=== PATIENT | male | born 1980 | race Caucasian/White ===

== ENCOUNTER 2016-11-15 08:25 | Emergency (ER) | payer OTHER, SELFPAY ==
[2016-11-15] MEDS ORDERED: Ondansetron HCl/PF 4 MG/2 ML Vial ONE ×2 (08:56→09:55)
[2016-11-15] MEDS ORDERED: Famotidine/PF 20 mg/2ml Vial ONE ×2 (08:56)
[2016-11-15] MEDS ORDERED: Fentanyl 100 MCG/2 ML VIAL ONE ×2 (08:58→09:54)
[2016-11-15 09:23] LABS: #Basophils 0.1 thou/uL (0.0-0.2); #Eosinphils 0.1 thou/uL (0.0-0.7); #Lymphocytes 1.7 thou/uL (1.20-3.40); #Monocytes 0.6 thou/uL (0.11-0.59); #Neutrophils 5.2 thou/uL (1.40-6.50); %Basophils 0.7 % (0.0-1.0); %Eosinophils 1.6 % (0.0-10.0); %Lymphocytes 22.6 % (21.0-51.0); %Monocytes 7.1 % (0.0-10.0); Hematocrit 39.5 % (42.0-52.0); Mean Platelet Volume 7.9 fL (7.4-10.4); Red Blood Cell (RBC) Count 4.35 mill/uL (4.70-6.10); White Blood Cell (WBC) Count 7.7 thou/uL (4.8-10.8)
[2016-11-15 09:38] LABS: ALT (SGPT) 6 U/L (8-55); AST (SGOT) 11 U/L (5-34); Alkaline Phosphatase 77 U/L (40-150); Anion Gap 13 mmol/L (10-20); BUN (Urea Nitrogen) 15 mg/dL (8.9-20.6); Bilirubin, Total 0.2 mg/dL (0.2-1.2); Calc. Creatinine Clearance 0 mL/min (70-130); Calcium 8.6 mg/dL (7.8-10.44); Carbon Dioxide 27 mmol/L (22-29); Chloride 104 mmol/L (98-107); Estimated GFR-MDRD Greater than 90; Globulin 2.9 g/dL (2.4-3.5); Lipase 22 U/L (8-78); Protein, Total 6.5 g/dL (6.0-8.3)
[2016-11-15] MEDS ORDERED: Promethazine HCl 25 MG/ML VIAL ONE (10:58)
[2016-11-15 11:17] LABS: Bilirubin Negative (Negative); Blood, Urine Negative (Negative); Glucose, Urine (Dipstick) Negative (Negative); Ketone, Urine Negative (Negative); Nitrite Negative (Negative); Protein, Urine (Dipstick) Negative (Neg-Trace); Urobilinogen 0.2 mg/dL (0.2-1.0)
[2016-11-15 11:41] LABS: Amphetamine Not Detected (NotDetected); Methadone Not Detected (NotDetected); Methamphetamine Not Detected (NotDetected)
[2016-11-15] MEDS ORDERED: Ketorolac Tromethamine 30 MG/ML VIAL ONE (12:31)
--- NOTE | 2016-11-15 14:00 | CT ---
CT OF ABDOMEN AND PELVIS PERFORMED WITH INTRAVENOUS CONTRAST ENHANCEMENT: HISTORY: Abdominal pain, nausea, and vomiting. Diarrhea. Diffuse abdominal tenderness. The patient reports a history of Crohn's disease. COMPARISON: study. FINDINGS: The lung bases are clear. The liver, spleen, pancreas, and gallbladder regions appear unremarkable. Suggestion there is some minimal periportal edema change present. No focal masses. Right and left adrenal glands and right and left kidneys are normal. There is no significant periao rtic or mesenteric adenopathy. There is diffuse abnormal appearance to the colon. On the left side in the descending colon, these changes appear more chronic in nature as do the changes of the transverse colon with loss of the nor mal haustral pattern. Changes of the right colon are more pronounced with more pronounced colon wal l thickening and pericolonic inflammatory change. I do not see any significant dilatation to the sm all bowel associated with this. Appendix is once again prominent but similar in appearance to what it was on the prior exam. Some minimal fluid adjacent to the cecum. CT OF PELVIS PERFORMED WITH CONTRAST ENHANCEMENT: Trace free fluid is noted. No adenopathy or mass. IMPRESSION: Changes that would be compatible with Crohn's colitis. I believe that the changes of the left and t ransverse colon are probably chronic in nature. There is probably a more acute inflammatory change involving the right colon. Specifically, in the area of the cecum. There is some pericolonic infla mmatory change and some trace free fluid. No pneumatosis identified. No obstruction. POS: [facility]
== END 2016-11-15 13:50 | disposition home or self-care (01) ==
LOC: SCSER 08:25
DX: K50.90 Crohn's disease, unspecified, without complications (principal); F17.210 Nicotine dependence, cigarettes, uncomplicated
CPT/HCPCS: 74177; 80053; 80306; 81003; 83690; 85025; 86140; 96361; 96374; 96375; 96376; J1885; J2405; J2550; J3010; S0028

== ENCOUNTER 2021-03-17 20:20 | Emergency (ER) | payer BC ==
[~2021-03-17 20:20] MED LIST: Iopamidol 370 76% 100 ML VIAL ONE
[2021-03-17] MEDS ORDERED: Ondansetron PF 4 MG/2 ML Vial ONE (20:39)
[2021-03-17] MEDS ORDERED: Fentanyl 100 MCG/2 ML VIAL ONE (20:39)
[2021-03-17 21:28] LABS: #Monocytes 1.1 thou/uL (0.11-0.59); #Neutrophils 10.2 thou/uL (1.40-6.50); %Basophils 0.3 % (0.0-1.0); %Eosinophils 0.4 % (0.0-10.0); %Lymphocytes 8.2 % (21.0-51.0); %Monocytes 8.5 % (0.0-10.0); %Neutrophils 82.6 % (42.0-75.0); Hemoglobin 12.7 g/dL (14.0-18.0); Mean Corpuscular HGB CONC 33.1 g/dL (32.0-36.0); Mean Corpuscular Hemoglobin 32.2 pg (27.0-31.0); Mean Corpuscular Volume 97.2 fL (78.0-98.0); Mean Platelet Volume 8.4 fL (7.4-10.4); Platelet Count 204 thou/uL (130-400); RBC Distribution Width 13.3 % (11.5-14.5); Red Blood Cell (RBC) Count 3.94 mill/uL (4.70-6.10); White Blood Cell (WBC) Count 12.3 thou/uL (4.8-10.8)
[2021-03-17 21:58] LABS: ALT (SGPT) 8 U/L (8-55); AST (SGOT) 13 U/L (5-34); Albumin 3.3 g/dL (3.5-5.0); Alkaline Phosphatase 61 U/L (40-110); Anion Gap 12 mmol/L (10-20); BUN (Urea Nitrogen) 9 mg/dL (8.9-20.6); Bilirubin, Total 1.3 mg/dL (0.2-1.2); Calc. Creatinine Clearance 0 mL/min (70-130); Carbon Dioxide 23 mmol/L (22-29); Chloride 99 mmol/L (98-107); Globulin 2.5 g/dL (2.4-3.5); Glucose 105 mg/dL (70-105); Lipase 5 U/L (8-78); Potassium 3.8 mmol/L (3.5-5.1); Protein, Total 5.8 g/dL (6.0-8.3); Sodium 130 mmol/L (136-145)
[2021-03-18 15:10] LABS: SARS-CoV-2 PCR by NAA DETECTED (NotDetected)
== END 2021-03-17 22:50 | disposition home or self-care (01) ==
LOC: ERS 20:20
DX: U07.1 COVID-19 (principal); J18.9 Pneumonia, unspecified organism; R10.9 Unspecified abdominal pain; F17.210 Nicotine dependence, cigarettes, uncomplicated
CPT/HCPCS: 36415; 74177; 80053; 83690; 85025; 96374; 96375; J2405; J3010; Q9967; U0003; U0005

== ENCOUNTER 2021-04-03 16:53 | Inpatient (IN) | payer BC ==
[2021-04-03 17:54] LABS: #Lymphocytes 1.7 thou/uL (1.20-3.40); #Monocytes 1.6 thou/uL (0.11-0.59); #Neutrophils 15.3 thou/uL (1.40-6.50); %Basophils 0.1 % (0.0-1.0); %Eosinophils 0.1 % (0.0-10.0); %Lymphocytes 9.1 % (21.0-51.0); %Monocytes 8.4 % (0.0-10.0); %Neutrophils 82.2 % (42.0-75.0); Hemoglobin 14.5 g/dL (14.0-18.0); Mean Corpuscular Hemoglobin 30.9 pg (27.0-31.0); Mean Corpuscular Volume 93.7 fL (78.0-98.0); Mean Platelet Volume 6.7 fL (7.4-10.4); Platelet Count 647 thou/uL (130-400); RBC Distribution Width 13.9 % (11.5-14.5); Red Blood Cell (RBC) Count 4.69 mill/uL (4.70-6.10); White Blood Cell (WBC) Count 18.6 thou/uL (4.8-10.8)
[2021-04-03 18:12] LABS: Anion Gap 17 mmol/L (10-20); BUN (Urea Nitrogen) 12 mg/dL (8.9-20.6); Calc. Creatinine Clearance 0 mL/min (70-130); Calcium 9.7 mg/dL (7.8-10.44); Carbon Dioxide 28 mmol/L (22-29); Chloride 95 mmol/L (98-107); Glucose 129 mg/dL (70-105); Sodium 136 mmol/L (136-145)
[2021-04-03] MEDS ORDERED: methylPREDNISolone Sod Succ/PF 125 MG/2 ML VIAL ONE (19:32)
[2021-04-03] MEDS ORDERED: Ondansetron PF 4 MG/2 ML Vial ONE (19:32)
[2021-04-03] MEDS ORDERED: HYDROmorphone 0.5 MG/0.5 ML SYRINGE ONE ×2 (21:07→23:36)
[2021-04-03] MEDS ORDERED: Promethazine HCl 25 MG/ML VIAL ONE (21:07)
[2021-04-03] MEDS ORDERED: Piperacillin/Tazobactam 4.5 GM VIAL ONE (23:14)
[2021-04-03] MEDS ORDERED: Lactated Ringer's 1,000 ML IV SCH (23:30)
[2021-04-04 01:14] VITALS: BMI 18.4
[2021-04-04] MEDS: Ondansetron PF 4 MG/2 ML Vial IVP PRN ×2 (01:44→08:24)
[2021-04-04] MEDS: Fentanyl 100 MCG/2 ML VIAL SLOW IVP PRN ×5 (01:53→16:40)
[2021-04-04] MEDS ORDERED: VANCOMYCIN 1.25 GM/250 ML BAG 1.25 GM in Premix Bag 1 BAG IVPB SCH (02:00)
[2021-04-04] MEDS: Piperacillin/Tazobactam 3.375 GM in Sodium Chloride 0.9% 100 ML IVPB SCH ×3 (03:29→20:10)
[2021-04-04] MEDS: Ketorolac Tromethamine 30 MG/ML VIAL IVP PRN ×2 (03:39→10:33)
[2021-04-04] MEDS ORDERED: metroNIDAZOLE 500 MG in Premix Bag 1 BAG IVPB SCH (06:00)
[2021-04-04 08:11] LABS: #Lymphocytes 0.8 thou/uL (1.20-3.40); #Monocytes 0.3 thou/uL (0.11-0.59); #Neutrophils 10.5 thou/uL (1.40-6.50); %Lymphocytes 7.3 % (21.0-51.0); %Monocytes 2.3 % (0.0-10.0); %Neutrophils 90.4 % (42.0-75.0); Hemoglobin 12.2 g/dL (14.0-18.0); Mean Corpuscular Hemoglobin 31.4 pg (27.0-31.0); Mean Corpuscular Volume 95.3 fL (78.0-98.0); Mean Platelet Volume 7.1 fL (7.4-10.4); Platelet Count 471 thou/uL (130-400); RBC Distribution Width 13.6 % (11.5-14.5); Red Blood Cell (RBC) Count 3.89 mill/uL (4.70-6.10); White Blood Cell (WBC) Count 11.6 thou/uL (4.8-10.8)
[2021-04-04] MEDS: Lactated Ringer's 1,000 ML IV SCH ×3 (08:24→20:11)
[2021-04-04 08:35] LABS: ALT (SGPT) 13 U/L (8-55); AST (SGOT) 12 U/L (5-34); Albumin 3.4 g/dL (3.5-5.0); Alkaline Phosphatase 103 U/L (40-110); Anion Gap 17 mmol/L (10-20); BUN (Urea Nitrogen) 14 mg/dL (8.9-20.6); Bilirubin, Total 0.6 mg/dL (0.2-1.2); Calc. Creatinine Clearance 111 mL/min (70-130); Calcium 8.6 mg/dL (7.8-10.44); Carbon Dioxide 21 mmol/L (22-29); Chloride 103 mmol/L (98-107); Globulin 3.5 g/dL (2.4-3.5); Glucose 138 mg/dL (70-105); Potassium 4.3 mmol/L (3.5-5.1); Protein, Total 6.9 g/dL (6.0-8.3); Sodium 137 mmol/L (136-145)
[2021-04-04 11:14] LABS: SARS-CoV-2 PCR by NAA Not Detected (NotDetected)
[2021-04-04] MEDS ORDERED: Ondansetron ODT 4 MG TAB PO PRN (14:01)
[2021-04-04] MEDS ORDERED: hydrALAZINE 20 MG/ML VIAL SLOW IVP PRN (14:01)
[2021-04-04] MEDS ORDERED: Ondansetron PF 4 MG/2 ML Vial IVP PRN (14:01)
[2021-04-04] MEDS: Nicotine 14 MG PATCH TD SCH (14:05)
[2021-04-04] MEDS ORDERED: Midazolam HCl 2 mg/2 ml Vial ONE (18:34)
[2021-04-04] MEDS ORDERED: Fentanyl 250 MCG/5 ML VIAL ONE ×2 (18:37→19:19)
[2021-04-04] MEDS ORDERED: Piperacillin/Tazobactam 3.375 GM VIAL ONE (19:16)
[2021-04-04] MEDS ORDERED: Sodium Chloride 0.9% 100 ML ONE (19:17)
[2021-04-04] MEDS ORDERED: HYDROmorphone 2 MG/ML VIAL ONE (19:19)
[2021-04-04] MEDS ORDERED: Ketamine 50 MG/ML (10ML VIAL) ONE (19:22)
[2021-04-04] MEDS ORDERED: Rocuronium Bromide 10 MG/ML (10ML VIAL) ONE (19:24)
[2021-04-04] MEDS ORDERED: Ketorolac Tromethamine 30 MG/ML VIAL ONE (19:24)
[2021-04-04] MEDS ORDERED: PROPOFOL 200 MG/20 ML VIAL ONE (19:24)
[2021-04-04] MEDS ORDERED: Ondansetron PF 4 MG/2 ML Vial ONE ×2 (19:24→22:01)
[2021-04-04] MEDS ORDERED: Succinylcholine 200 MG/10 ml SYRINGE FS ONE (19:24)
[2021-04-04] MEDS ORDERED: Lidocaine 1% PF 5 ML VIAL ONE (19:24)
[2021-04-04] MEDS ORDERED: Dexamethasone 20 MG/5 ML VIAL ONE (19:24)
[2021-04-04] MEDS ORDERED: Glycopyrrolate 0.2 MG/ML 5 ML SYRINGE ONE (19:24)
[2021-04-04] MEDS: Enoxaparin Sodium 40 MG/0.4 ML SYRINGE SC SCH (20:11)
[2021-04-04] MEDS ORDERED: Sodium Chloride 0.9% 20 ML ONE (20:19)
[2021-04-04] MEDS ORDERED: diphenhydrAMINE 25 MG CAP PO PRN (20:24)
[2021-04-04] MEDS ORDERED: Naloxone HCl 0.4 mg/ml Vial IV PRN (20:24)
[2021-04-04] MEDS ORDERED: diphenhydrAMINE 50 MG/ML VIAL IM PRN (20:24)
[2021-04-04] MEDS ORDERED: diphenhydrAMINE 50 MG/ML VIAL IVP PRN (20:24)
[2021-04-04] MEDS ORDERED: Promethazine HCl 25 MG/ML VIAL IVPB PRN (20:24)
[2021-04-04] MEDS ORDERED: Ondansetron HCl/PF 4 MG/2 ML Vial IVP PRN (20:24)
[2021-04-04] MEDS ORDERED: HYDROmorphone 2 MG/ML VIAL SLOW IVP PRN (20:24)
[2021-04-04] MEDS ORDERED: fentaNYL Citrate/PF 2,000 MCG in Sodium Chloride 0.9% 60 ML IV PRN (20:24)
[2021-04-04] MEDS ORDERED: Promethazine HCl 25 MG/ML VIAL IM PRN (20:24)
[2021-04-04] MEDS ORDERED: Communication Order-Pharmacy FS SCH (20:30)
[2021-04-04] MEDS ORDERED: Promethazine HCl 25 MG/ML VIAL ONE (22:12)
[2021-04-05] MEDS: Ketorolac Tromethamine 30 MG/ML VIAL IVP SCH ×5 (00:11→23:57)
[2021-04-05] MEDS: Piperacillin/Tazobactam 3.375 GM in Sodium Chloride 0.9% 100 ML IVPB SCH ×3 (03:36→21:03)
[2021-04-05] MEDS: Lactated Ringer's 1,000 ML IV SCH ×3 (03:36→21:03)
[2021-04-05] MEDS: Ondansetron PF 4 MG/2 ML Vial IVP PRN ×2 (03:54→21:07)
[2021-04-05 05:38] LABS: #Lymphocytes 1.1 thou/uL (1.20-3.40); #Neutrophils 15.8 thou/uL (1.40-6.50); %Basophils 0.2 % (0.0-1.0); %Eosinophils 0.1 % (0.0-10.0); %Lymphocytes 6.1 % (21.0-51.0); %Monocytes 5.3 % (0.0-10.0); %Neutrophils 88.3 % (42.0-75.0); Hemoglobin 10.7 g/dL (14.0-18.0); Mean Corpuscular HGB CONC 32.6 g/dL (32.0-36.0); Mean Corpuscular Hemoglobin 31.2 pg (27.0-31.0); Mean Corpuscular Volume 95.5 fL (78.0-98.0); Mean Platelet Volume 6.9 fL (7.4-10.4); Platelet Count 457 thou/uL (130-400); RBC Distribution Width 13.4 % (11.5-14.5); Red Blood Cell (RBC) Count 3.43 mill/uL (4.70-6.10); White Blood Cell (WBC) Count 17.9 thou/uL (4.8-10.8)
[2021-04-05 05:56] LABS: ALT (SGPT) 15 U/L (8-55); AST (SGOT) 18 U/L (5-34); Alkaline Phosphatase 77 U/L (40-110); Anion Gap 14 mmol/L (10-20); BUN (Urea Nitrogen) 23 mg/dL (8.9-20.6); Bilirubin, Total 0.5 mg/dL (0.2-1.2); Calc. Creatinine Clearance 99 mL/min (70-130); Calcium 8.3 mg/dL (7.8-10.44); Carbon Dioxide 25 mmol/L (22-29); Chloride 105 mmol/L (98-107); Globulin 2.9 g/dL (2.4-3.5); Glucose 108 mg/dL (70-105); Magnesium 2.2 mg/dL (1.6-2.6); Potassium 4.5 mmol/L (3.5-5.1); Protein, Total 5.9 g/dL (6.0-8.3); Sodium 139 mmol/L (136-145)
[2021-04-05] MEDS ORDERED: Lactated Ringer's 1,000 ML IV SCH (07:00)
[2021-04-05] MEDS ORDERED: Dextrose 5% in Water 1,000 ML IV PRN (09:19)
[2021-04-05] MEDS ORDERED: HumaLOG 300 UNITS/3 ML VIAL SC PRN (09:19)
[2021-04-05] MEDS ORDERED: Dextrose 50% Abboject 50 ML SYRINGE SLOW IVP PRN (09:19)
[2021-04-05] MEDS ORDERED: Multivitamins, Adult 10 ML, TRACE ELEMENT CONCENTRATE 1 ML in CLINIMIX E 5/20 2,000 ML IV SCH (10:00)
[2021-04-05] MEDS: Multivitamins, Adult 10 ML, TRACE ELEMENT CONCENTRATE 1 ML in CLINIMIX E 5/20 2,000 ML IV SCH (16:12)
[2021-04-05] MEDS: fentaNYL Citrate/PF 2,000 MCG in Sodium Chloride 0.9% 60 ML IV PRN (17:37)
[2021-04-05] MEDS: Nicotine 14 MG PATCH TD SCH (17:43)
[2021-04-05] MEDS: Enoxaparin Sodium 40 MG/0.4 ML SYRINGE SC SCH (21:03)
[2021-04-05] MEDS: Zolpidem Tartrate 5 MG TAB PO PRN (21:05)
[2021-04-06] MEDS: Piperacillin/Tazobactam 3.375 GM in Sodium Chloride 0.9% 100 ML IVPB SCH ×3 (04:26→21:28)
[2021-04-06] MEDS: Ketorolac Tromethamine 30 MG/ML VIAL IVP SCH ×4 (06:06→23:16)
[2021-04-06] MEDS: fentaNYL Citrate/PF 2,000 MCG in Sodium Chloride 0.9% 60 ML IV PRN (06:06)
[2021-04-06] MEDS ORDERED: Lactated Ringer's 1,000 ML IV SCH (07:05)
[2021-04-06] MEDS: Lactated Ringer's 1,000 ML IV SCH (07:08)
[2021-04-06] MEDS ORDERED: HYDROcodone/Acetaminophen 10/325 mg Tablet PO SCH (09:45)
[2021-04-06] MEDS ORDERED: HYDROcodone/Acetaminophen 10/325 mg Tablet PO PRN (09:46)
[2021-04-06] MEDS ORDERED: traMADol HCl 50 MG TAB PO PRN (09:46)
[2021-04-06] MEDS ORDERED: fentaNYL Citrate/PF 2,000 MCG in Sodium Chloride 0.9% 60 ML IV PRN (09:48)
[2021-04-06] MEDS: Ondansetron PF 4 MG/2 ML Vial IVP PRN ×2 (10:18→17:13)
[2021-04-06 10:59] LABS: #Basophils 0.1 thou/uL (0.0-0.2); #Eosinphils 0.1 thou/uL (0.0-0.7); #Lymphocytes 0.9 thou/uL (1.20-3.40); #Monocytes 0.7 thou/uL (0.11-0.59); #Neutrophils 7.2 thou/uL (1.40-6.50); %Basophils 0.8 % (0.0-1.0); %Monocytes 8.1 % (0.0-10.0); %Neutrophils 80.1 % (42.0-75.0); Hemoglobin 9.7 g/dL (14.0-18.0); Mean Corpuscular HGB CONC 31.8 g/dL (32.0-36.0); Mean Corpuscular Hemoglobin 30.8 pg (27.0-31.0); Mean Corpuscular Volume 96.8 fL (78.0-98.0); Mean Platelet Volume 7.3 fL (7.4-10.4); Platelet Count 389 thou/uL (130-400); RBC Distribution Width 13.4 % (11.5-14.5); Red Blood Cell (RBC) Count 3.16 mill/uL (4.70-6.10)
[2021-04-06] MEDS ORDERED: Fentanyl 100 MCG/2 ML VIAL SLOW IVP PRN (13:09)
[2021-04-06] MEDS ORDERED: Fat Emulsion 250 ML IVPB SCH (14:00)
[2021-04-06] MEDS: Multivitamins, Adult 10 ML, TRACE ELEMENT CONCENTRATE 1 ML in CLINIMIX E 5/20 2,000 ML IV SCH (16:46)
[2021-04-06] MEDS: Enoxaparin Sodium 40 MG/0.4 ML SYRINGE SC SCH (21:27)
[2021-04-06] MEDS: Nicotine 14 MG PATCH TD SCH (21:28)
[2021-04-06] MEDS: Promethazine HCl 25 MG/ML VIAL IM PRN (22:02)
[2021-04-07] MEDS: Promethazine HCl 25 MG/ML VIAL IM PRN ×4 (02:00→23:43)
[2021-04-07] MEDS: Ketorolac Tromethamine 30 MG/ML VIAL IVP SCH ×4 (05:19→23:38)
[2021-04-07] MEDS: Piperacillin/Tazobactam 3.375 GM in Sodium Chloride 0.9% 100 ML IVPB SCH ×3 (05:20→20:38)
[2021-04-07 06:15] LABS: Mean Corpuscular HGB CONC 33.1 g/dL (32.0-36.0); Mean Corpuscular Volume 96.8 fL (78.0-98.0); Mean Platelet Volume 7.4 fL (7.4-10.4); Platelet Count 405 thou/uL (130-400); RBC Distribution Width 13.6 % (11.5-14.5); Red Blood Cell (RBC) Count 3.13 mill/uL (4.70-6.10); White Blood Cell (WBC) Count 8.9 thou/uL (4.8-10.8)
[2021-04-07 07:03] LABS: Thyroid Stimulating Hormone 0.7604 uIU/mL (0.35-4.94)
[2021-04-07] MEDS: HYDROcodone/Acetaminophen 10/325 mg Tablet PO PRN ×3 (08:54→20:39)
[2021-04-07] MEDS: Multivitamins, Adult 10 ML, TRACE ELEMENT CONCENTRATE 1 ML in CLINIMIX E 5/20 2,000 ML IV SCH (16:53)
[2021-04-07] MEDS: Nicotine 14 MG PATCH TD SCH (20:40)
[2021-04-07] MEDS: Enoxaparin Sodium 40 MG/0.4 ML SYRINGE SC SCH (20:40)
[2021-04-07] MEDS: Zolpidem Tartrate 5 MG TAB PO PRN (20:48)
[2021-04-07] MEDS: Ondansetron PF 4 MG/2 ML Vial IVP PRN (20:49)
[2021-04-08] MEDS: Piperacillin/Tazobactam 3.375 GM in Sodium Chloride 0.9% 100 ML IVPB SCH ×2 (04:19→12:23)
[2021-04-08] MEDS: Ondansetron PF 4 MG/2 ML Vial IVP PRN ×2 (04:24→15:25)
[2021-04-08] MEDS: HYDROcodone/Acetaminophen 10/325 mg Tablet PO PRN ×3 (04:24→15:25)
[2021-04-08] MEDS: Ketorolac Tromethamine 30 MG/ML VIAL IVP SCH ×2 (06:18→12:21)
[2021-04-08 06:33] LABS: #Eosinphils 0.3 thou/uL (0.0-0.7); #Lymphocytes 1.3 thou/uL (1.20-3.40); #Monocytes 0.6 thou/uL (0.11-0.59); #Neutrophils 5.9 thou/uL (1.40-6.50); %Basophils 0.2 % (0.0-1.0); %Eosinophils 3.5 % (0.0-10.0); %Lymphocytes 15.6 % (21.0-51.0); %Monocytes 6.9 % (0.0-10.0); %Neutrophils 73.8 % (42.0-75.0); Hemoglobin 10.1 g/dL (14.0-18.0); Mean Corpuscular HGB CONC 31.9 g/dL (32.0-36.0); Mean Corpuscular Hemoglobin 30.6 pg (27.0-31.0); Mean Corpuscular Volume 96.1 fL (78.0-98.0); Mean Platelet Volume 7.3 fL (7.4-10.4); Platelet Count 412 thou/uL (130-400); RBC Distribution Width 13.5 % (11.5-14.5); Red Blood Cell (RBC) Count 3.28 mill/uL (4.70-6.10)
[2021-04-08 06:51] LABS: ALT (SGPT) 18 U/L (8-55); AST (SGOT) 24 U/L (5-34); Albumin 2.9 g/dL (3.5-5.0); Alkaline Phosphatase 115 U/L (40-110); Anion Gap 12 mmol/L (10-20); BUN (Urea Nitrogen) 15 mg/dL (8.9-20.6); Bilirubin, Total 0.6 mg/dL (0.2-1.2); Calc. Creatinine Clearance 120 mL/min (70-130); Calcium 8.5 mg/dL (7.8-10.44); Carbon Dioxide 25 mmol/L (22-29); Chloride 103 mmol/L (98-107); Globulin 3.2 g/dL (2.4-3.5); Glucose 118 mg/dL (70-105); Potassium 4.3 mmol/L (3.5-5.1); Protein, Total 6.1 g/dL (6.0-8.3); Sodium 136 mmol/L (136-145)
[2021-04-08] MEDS: Promethazine HCl 25 MG/ML VIAL IM PRN (08:18)
[2021-04-08] MEDS: Multivitamins, Adult 10 ML, TRACE ELEMENT CONCENTRATE 1 ML in CLINIMIX E 5/20 2,000 ML IV SCH (13:08)
[2021-04-08] MEDS: Nicotine 14 MG PATCH TD SCH (15:25)
[2021-04-08 16:23] VITALS: BP 110/60; TEMP 97.9
== END 2021-04-08 16:20 | disposition home or self-care (01) | DRG 329 ==
LOC: ERS 16:53 → SURG B 22:37
PROVIDERS: ADMIT Internal Medicine; ATTEND Internal Medicine
PROC: 0DTL0ZZ Resection of Transverse Colon, Open Approach (ICD-10-PCS; principal; 2021-04-04)
PROC: 0D1E0Z4 Bypass Large Intestine to Cutaneous, Open Approach (ICD-10-PCS; 2021-04-04)
PROC: 02HV33Z Insertion of Infusion Device into Superior Vena Cava, Percutaneous Approach (ICD-10-PCS; 2021-04-04)
PROC: 3E0436Z Introduction of Nutritional Substance into Central Vein, Percutaneous Approach (ICD-10-PCS; 2021-04-06)
DX: K50.114 Crohn's disease of large intestine with abscess (principal); E43 Unspecified severe protein-calorie malnutrition; K63.1 Perforation of intestine (nontraumatic); Z68.1 Body mass index [BMI] 19.9 or less, adult; K56.7 Ileus, unspecified; Z20.822 Contact with and (suspected) exposure to COVID-19; K50.118 Crohn's disease of large intestine with other complication; E86.0 Dehydration; E86.9 Volume depletion, unspecified; F17.210 Nicotine dependence, cigarettes, uncomplicated; D63.8 Anemia in other chronic diseases classified elsewhere; Z88.5 Allergy status to narcotic agent; Z91.19 Patient's noncompliance with other medical treatment and regimen; Z71.6 Tobacco abuse counseling; Z79.899 Other long term (current) drug therapy
CPT/HCPCS: 36415; 36416; 71045; 74177; 80048; 80053; 82607; 82746; 83605; 83690; 83735; 84443; 85025; 85027; 85652; 86140; 88307; 93005; C1751; C1776; J1100; J1170; J1650; J1885; J2250; J2405; J2543; J2550; J2704; J2930; J3010; J3370; J3490; J7120; U0003; U0005

== ENCOUNTER 2021-07-12 14:43 | Emergency (ER) | payer BC ==
[2021-07-12 15:52] LABS: #Eosinphils 0.2 thou/uL (0.0-0.7); #Lymphocytes 1.7 thou/uL (1.20-3.40); #Monocytes 0.8 thou/uL (0.11-0.59); #Neutrophils 5.8 thou/uL (1.40-6.50); %Basophils 0.5 % (0.0-1.0); %Eosinophils 2.9 % (0.0-10.0); %Lymphocytes 19.3 % (21.0-51.0); %Neutrophils 68.3 % (42.0-75.0); Hemoglobin 15.7 g/dL (14.0-18.0); Mean Corpuscular HGB CONC 32.4 g/dL (32.0-36.0); Mean Corpuscular Hemoglobin 30.3 pg (27.0-31.0); Mean Corpuscular Volume 93.3 fL (78.0-98.0); Mean Platelet Volume 8.1 fL (7.4-10.4); Platelet Count 286 thou/uL (130-400); RBC Distribution Width 15.3 % (11.5-14.5); Red Blood Cell (RBC) Count 5.17 mill/uL (4.70-6.10); White Blood Cell (WBC) Count 8.5 thou/uL (4.8-10.8)
[2021-07-12 16:12] LABS: ALT (SGPT) 15 U/L (8-55); AST (SGOT) 14 U/L (5-34); Albumin 4.3 g/dL (3.5-5.0); Alkaline Phosphatase 100 U/L (40-110); Anion Gap 9 mmol/L (10-20); BUN (Urea Nitrogen) 11 mg/dL (8.9-20.6); Bilirubin, Total 0.8 mg/dL (0.2-1.2); Calc. Creatinine Clearance 0 mL/min (70-130); Calcium 9.3 mg/dL (7.8-10.44); Carbon Dioxide 33 mmol/L (22-29); Chloride 104 mmol/L (98-107); Globulin 3.7 g/dL (2.4-3.5); Glucose 80 mg/dL (70-105); Lipase 20 U/L (8-78); Potassium 3.9 mmol/L (3.5-5.1); Sodium 142 mmol/L (136-145)
[2021-07-12] MEDS ORDERED: Ondansetron ODT 4 MG TAB ONE (16:12)
[2021-07-12] MEDS ORDERED: Morphine 4 MG/ML VIAL ONE (16:21)
== END 2021-07-12 17:37 | disposition home or self-care (01) ==
LOC: ERS 14:43
DX: G89.18 Other acute postprocedural pain (principal); R10.30 Lower abdominal pain, unspecified; K62.5 Hemorrhage of anus and rectum; F17.210 Nicotine dependence, cigarettes, uncomplicated
CPT/HCPCS: 74177; 80053; 83690; 85025; 96374; J2270; Q0162

== ENCOUNTER 2021-07-13 11:13 | Outpatient (CLI) | payer BC ==
[2021-07-13 13:21] LABS: #Eosinphils 0.2 10x3/uL (0.0-0.5); #Monocytes 0.5 10x3/uL (0.0-1.1); #Neutrophils 5.3 10x3/uL (1.5-8.4); %Basophils 0.5 % (0.0-2.0); %Eosinophils 2.7 % (0.0-6.0); %Neutrophils 68.5 % (40.0-75.0); Mean Corpuscular HGB CONC 33.3 g/dL (32.0-36.0); Mean Corpuscular Hemoglobin 30.1 pg (27.0-33.0); Mean Corpuscular Volume 90.3 fl (81.2-95.1); Mean Platelet Volume 11.2 fl (7.4-10.4); Platelet Count 265 10x3/uL (150-450); Red Blood Cell (RBC) Count 4.65 10x6/uL (4.32-5.72); White Blood Cell (WBC) Count 7.7 10x3/uL (3.5-10.5)
[2021-07-13 13:27] LABS: ALT (SGPT) 17 U/L (8-55); AST (SGOT) 16 U/L (5-34); Albumin 4.2 g/dL (3.5-5.0); Alkaline Phosphatase 89 U/L (40-110); Anion Gap 14 mmol/L (10-20); BUN (Urea Nitrogen) 13 mg/dL (8.9-20.6); Bilirubin, Total 0.4 mg/dL (0.2-1.2); Calc. Creatinine Clearance 0 mL/min (70-130); Calcium 9.2 mg/dL (7.8-10.44); Carbon Dioxide 28 mmol/L (22-29); Chloride 106 mmol/L (98-107); Glucose 82 mg/dL (70-105); Potassium 4.3 mmol/L (3.5-5.1); Protein, Total 7.2 g/dL (6.0-8.3); Sodium 144 mmol/L (136-145)
[2021-07-14 02:04] LABS: SARS-CoV-2 PCR by NAA Not Detected (NotDetected)
== END 2021-07-13 11:14 | disposition home or self-care (01) ==
LOC: LABBT 11:13
PROVIDERS: ATTEND Specialist
DX: Z01.812 Encounter for preprocedural laboratory examination (principal); K50.90 Crohn's disease, unspecified, without complications; Z93.3 Colostomy status; Z20.822 Contact with and (suspected) exposure to COVID-19
CPT/HCPCS: 80053; 85025; U0003; U0005

== ENCOUNTER 2021-07-13 11:15 | Inpatient (IN) | payer BC ==
[2021-07-17 11:48] VITALS: BMI 20.7
[2021-07-18] MEDS ORDERED: Gabapentin 300 MG CAP ONE (06:21)
[2021-07-18] MEDS ORDERED: Acetaminophen 500 MG TAB ONE (06:21)
[2021-07-18] MEDS ORDERED: Ketorolac Tromethamine 30 MG/ML VIAL ONE ×2 (06:22→07:37)
[2021-07-18] MEDS ORDERED: Meropenem 1 GM in Sodium Chloride 0.9% 100 ML IVPB SCH (06:30)
[2021-07-18] MEDS ORDERED: Lidocaine 1% w/Epinephrine 1:100K 20 ML VIAL ONE (06:39)
[2021-07-18] MEDS ORDERED: Bupivacaine PF 0.5% 30 ML VIAL ONE (06:39)
[2021-07-18] MEDS ORDERED: Fentanyl 100 MCG/2 ML VIAL ONE ×2 (06:57→11:09)
[2021-07-18] MEDS ORDERED: Midazolam HCl 2 mg/2 ml Vial ONE (06:57)
[2021-07-18] MEDS ORDERED: Lidocaine 1% (PF) 30 ML VIAL ONE (06:57)
[2021-07-18] MEDS ORDERED: cefOXitin 2 GM VIAL ONE (07:26)
[2021-07-18] MEDS ORDERED: Sodium Chloride 0.9% 0 ML ONE (07:26)
[2021-07-18] MEDS ORDERED: fentaNYL Citrate/PF 100 MCG/2 ML SYRINGE ONE ×2 (07:29→07:30)
[2021-07-18] MEDS ORDERED: HYDROmorphone 0.5 MG/0.5 ML SYRINGE ONE (07:29)
[2021-07-18] MEDS ORDERED: Lidocaine 1% PF 5 ML VIAL ONE (07:37)
[2021-07-18] MEDS ORDERED: Rocuronium Bromide 10 MG/ML (10ML VIAL) ONE (07:37)
[2021-07-18] MEDS ORDERED: Ondansetron PF 4 MG/2 ML Vial ONE (07:37)
[2021-07-18] MEDS ORDERED: PROPOFOL 200 MG/20 ML VIAL ONE (07:37)
[2021-07-18] MEDS ORDERED: Bupivacaine HCl 0.5%/Epinephrine 1:200,000/PF 30 ml Vial ONE (07:37)
[2021-07-18] MEDS ORDERED: Ondansetron HCl/PF 4 MG/2 ML Vial IVP PRN (10:57)
[2021-07-18] MEDS ORDERED: Promethazine HCl 25 MG/ML VIAL IVPB PRN (10:57)
[2021-07-18] MEDS ORDERED: Promethazine HCl 25 MG/ML VIAL IM PRN ×2 (10:57→12:45)
[2021-07-18] MEDS ORDERED: HYDROmorphone 2 MG/ML VIAL SLOW IVP PRN (10:57)
[2021-07-18] MEDS ORDERED: hydrALAZINE 20 MG/ML VIAL SLOW IVP PRN (11:12)
[2021-07-18] MEDS ORDERED: Ondansetron PF 4 MG/2 ML Vial IVP PRN (11:12)
[2021-07-18] MEDS ORDERED: Fentanyl 100 MCG/2 ML VIAL SLOW IVP PRN (11:17)
[2021-07-18] MEDS ORDERED: USTEKINUMAB 90 MG/ML FS SCH (11:30)
[2021-07-18] MEDS ORDERED: HYDROmorphone 2 MG/ML VIAL ONE (11:52)
[2021-07-18] MEDS ORDERED: Ketorolac Tromethamine 30 MG/ML VIAL IVP SCH (12:00)
[2021-07-18] MEDS ORDERED: Zolpidem Tartrate 5 MG TAB PO PRN (12:45)
[2021-07-18] MEDS ORDERED: diphenhydrAMINE 50 MG/ML VIAL IM/IV PRN (12:45)
[2021-07-18] MEDS ORDERED: Naloxone HCl 0.4 mg/ml Vial IV PRN (12:45)
[2021-07-18] MEDS ORDERED: Heparin 1,000 UNITS/ML VIAL ONE (13:10)
[2021-07-18] MEDS: Gabapentin 300 MG CAP PO SCH ×2 (14:36→20:16)
[2021-07-18] MEDS: Acetaminophen 500 MG TAB PO SCH ×3 (14:37→22:05)
[2021-07-18] MEDS: Lactated Ringer's 1,000 ML IV SCH ×2 (14:37→16:57)
[2021-07-18] MEDS: cefOXitin 2 GM in Sodium Chloride 0.9% 100 ML IVPB SCH ×2 (16:26→22:43)
[2021-07-18] MEDS: Famotidine/PF 20 mg/2ml Vial SLOW IVP SCH (19:42)
[2021-07-18] MEDS: diphenhydrAMINE 25 MG CAP PO PRN (20:16)
[2021-07-18] MEDS: Famotidine 20 MG TAB PO SCH (20:16)
[2021-07-18] MEDS: Enoxaparin Sodium 40 MG/0.4 ML SYRINGE SC SCH (20:16)
[2021-07-19] MEDS: Ondansetron PF 4 MG/2 ML Vial IVP PRN (00:38)
[2021-07-19] MEDS: diphenhydrAMINE 25 MG CAP PO PRN ×2 (00:38→20:54)
[2021-07-19] MEDS: Lactated Ringer's 1,000 ML IV SCH ×4 (04:00→18:22)
[2021-07-19] MEDS: HYDROmorphone 10 MG in Sodium Chloride 0.9% 95 ML IVPB PRN ×3 (04:35→21:50)
[2021-07-19] MEDS: Acetaminophen 500 MG TAB PO SCH ×3 (04:43→17:31)
[2021-07-19 06:03] LABS: #Basophils 0.1 thou/uL (0.0-0.2); #Eosinphils 0.3 thou/uL (0.0-0.7); #Lymphocytes 1.1 thou/uL (1.20-3.40); #Monocytes 0.6 thou/uL (0.11-0.59); #Neutrophils 5.3 thou/uL (1.40-6.50); %Basophils 0.8 % (0.0-1.0); %Eosinophils 3.6 % (0.0-10.0); %Lymphocytes 14.8 % (21.0-51.0); %Monocytes 8.1 % (0.0-10.0); %Neutrophils 72.7 % (42.0-75.0); Hemoglobin 12.4 g/dL (14.0-18.0); Mean Corpuscular HGB CONC 33.5 g/dL (32.0-36.0); Mean Corpuscular Hemoglobin 31.8 pg (27.0-31.0); Mean Corpuscular Volume 94.8 fL (78.0-98.0); Mean Platelet Volume 8.4 fL (7.4-10.4); Platelet Count 190 thou/uL (130-400); RBC Distribution Width 14.5 % (11.5-14.5); White Blood Cell (WBC) Count 7.3 thou/uL (4.8-10.8)
[2021-07-19 06:25] LABS: Anion Gap 8 mmol/L (10-20); BUN (Urea Nitrogen) 11 mg/dL (8.9-20.6); Calc. Creatinine Clearance 110 mL/min (70-130); Calcium 7.9 mg/dL (7.8-10.44); Carbon Dioxide 27 mmol/L (22-29); Chloride 104 mmol/L (98-107); Glucose 103 mg/dL (70-105); Sodium 135 mmol/L (136-145)
[2021-07-19] MEDS: Famotidine 20 MG TAB PO SCH ×2 (08:23→20:54)
[2021-07-19] MEDS: Gabapentin 300 MG CAP PO SCH ×3 (08:23→20:53)
[2021-07-19] MEDS: Famotidine/PF 20 mg/2ml Vial SLOW IVP SCH (08:23)
[2021-07-19] MEDS ORDERED: Lactated Ringer's 1,000 ML IV SCH (18:25)
[2021-07-19] MEDS: Enoxaparin Sodium 40 MG/0.4 ML SYRINGE SC SCH (20:54)
[2021-07-20] MEDS: Acetaminophen 500 MG TAB PO SCH ×3 (00:06→12:46)
[2021-07-20] MEDS: Gabapentin 300 MG CAP PO SCH ×2 (08:39→15:00)
[2021-07-20] MEDS: Famotidine 20 MG TAB PO SCH (08:39)
[2021-07-20 09:07] LABS: #Eosinphils 0.2 thou/uL (0.0-0.7); #Lymphocytes 0.8 thou/uL (1.20-3.40); #Monocytes 0.9 thou/uL (0.11-0.59); #Neutrophils 7.9 thou/uL (1.40-6.50); %Basophils 0.3 % (0.0-1.0); %Eosinophils 2.4 % (0.0-10.0); %Lymphocytes 8.1 % (21.0-51.0); %Neutrophils 80.2 % (42.0-75.0); Hemoglobin 13.3 g/dL (14.0-18.0); Mean Corpuscular HGB CONC 33.3 g/dL (32.0-36.0); Mean Corpuscular Hemoglobin 30.6 pg (27.0-31.0); Mean Corpuscular Volume 91.9 fL (78.0-98.0); Mean Platelet Volume 8.2 fL (7.4-10.4); Platelet Count 197 thou/uL (130-400); Red Blood Cell (RBC) Count 4.35 mill/uL (4.70-6.10); White Blood Cell (WBC) Count 9.8 thou/uL (4.8-10.8)
[2021-07-20] MEDS ORDERED: traMADol HCl 50 MG TAB PO PRN ×2 (09:09)
[2021-07-20] MEDS ORDERED: HYDROcodone/Acetaminophen 10/325 mg Tablet PO PRN ×2 (09:10)
[2021-07-20] MEDS: Fentanyl 100 MCG/2 ML VIAL SLOW IVP PRN ×3 (10:25→16:34)
[2021-07-20] MEDS: Ondansetron PF 4 MG/2 ML Vial IVP PRN (14:13)
[2021-07-20] MEDS ORDERED: Ondansetron PF 4 MG/2 ML Vial IVP PRN (17:35)
[2021-07-20] MEDS ORDERED: Ondansetron ODT 8 MG TAB SL PRN (17:35)
[2021-07-20] MEDS ORDERED: Fentanyl 100 MCG/2 ML VIAL SLOW IVP PRN (17:36)
[2021-07-20] MEDS ORDERED: Zolpidem Tartrate 5 MG TAB PO PRN (19:19)
[2021-07-20] MEDS ORDERED: diphenhydrAMINE 50 MG/ML VIAL IVP PRN (19:19)
[2021-07-20] MEDS ORDERED: diphenhydrAMINE 50 MG/ML VIAL IM PRN (19:19)
[2021-07-20] MEDS ORDERED: diphenhydrAMINE 25 MG CAP PO PRN (19:19)
[2021-07-20] MEDS ORDERED: Promethazine HCl 25 MG/ML VIAL IM PRN (19:19)
[2021-07-20] MEDS ORDERED: Naloxone HCl 0.4 mg/ml Vial IV PRN (19:19)
[2021-07-20] MEDS ORDERED: Communication Order-Pharmacy FS SCH (19:30)
[2021-07-20] MEDS: Lactated Ringer's 1,000 ML IV SCH ×2 (19:36→23:46)
[2021-07-20] MEDS: Ketorolac Tromethamine 30 MG/ML VIAL IVP SCH ×2 (19:51→23:40)
[2021-07-20] MEDS: HYDROmorphone 10 mg/100 ml CADD IVPB PRN (20:02)
[2021-07-20] MEDS: Enoxaparin Sodium 40 MG/0.4 ML SYRINGE SC SCH (20:13)
[2021-07-21] MEDS: Ketorolac Tromethamine 30 MG/ML VIAL IVP SCH ×4 (06:03→23:24)
[2021-07-21] MEDS: HYDROmorphone 10 mg/100 ml CADD IVPB PRN ×2 (06:04→16:30)
[2021-07-21] MEDS: Lactated Ringer's 1,000 ML IV SCH ×2 (08:02→17:07)
[2021-07-21 10:23] LABS: #Eosinphils 0.1 thou/uL (0.0-0.7); #Lymphocytes 0.6 thou/uL (1.20-3.40); #Monocytes 0.6 thou/uL (0.11-0.59); %Basophils 0.7 % (0.0-1.0); %Eosinophils 3.2 % (0.0-10.0); %Monocytes 13.8 % (0.0-10.0); %Neutrophils 69.3 % (42.0-75.0); Hemoglobin 11.7 g/dL (14.0-18.0); Mean Corpuscular HGB CONC 33.1 g/dL (32.0-36.0); Mean Corpuscular Hemoglobin 31.2 pg (27.0-31.0); Mean Corpuscular Volume 94.3 fL (78.0-98.0); Mean Platelet Volume 7.9 fL (7.4-10.4); Platelet Count 210 thou/uL (130-400); RBC Distribution Width 13.7 % (11.5-14.5); Red Blood Cell (RBC) Count 3.73 mill/uL (4.70-6.10); White Blood Cell (WBC) Count 4.3 thou/uL (4.8-10.8)
[2021-07-21 10:41] LABS: Anion Gap 14 mmol/L (10-20); BUN (Urea Nitrogen) 16 mg/dL (8.9-20.6); Calc. Creatinine Clearance 129 mL/min (70-130); Calcium 8.5 mg/dL (7.8-10.44); Carbon Dioxide 24 mmol/L (22-29); Chloride 101 mmol/L (98-107); Glucose 91 mg/dL (70-105); Potassium 4.2 mmol/L (3.5-5.1); Sodium 135 mmol/L (136-145)
[2021-07-21] MEDS ORDERED: Cepastat Lozenges 1 LOZ PO PRN (18:29)
[2021-07-21] MEDS: Enoxaparin Sodium 40 MG/0.4 ML SYRINGE SC SCH (21:13)
[2021-07-22] MEDS: HYDROmorphone 10 mg/100 ml CADD IVPB PRN (02:04)
[2021-07-22] MEDS: Lactated Ringer's 1,000 ML IV SCH ×2 (02:08→18:29)
[2021-07-22] MEDS: Ketorolac Tromethamine 30 MG/ML VIAL IVP SCH ×4 (05:19→19:37)
[2021-07-22 06:05] LABS: Anion Gap 16 mmol/L (10-20); BUN (Urea Nitrogen) 19 mg/dL (8.9-20.6); Calc. Creatinine Clearance 127 mL/min (70-130); Calcium 8.4 mg/dL (7.8-10.44); Carbon Dioxide 26 mmol/L (22-29); Chloride 99 mmol/L (98-107); Glucose 72 mg/dL (70-105); Potassium 3.7 mmol/L (3.5-5.1); Sodium 137 mmol/L (136-145)
[2021-07-22 07:13] LABS: Band 29 % (5-11); Eosinophils 6 % (0-10); Hemoglobin 11.5 g/dL (14.0-18.0); Lymphocytes 20 % (21-51); MDiff Complete? YES; Mean Corpuscular Hemoglobin 31.4 pg (27.0-31.0); Mean Corpuscular Volume 95.1 fL (78.0-98.0); Mean Platelet Volume 7.5 fL (7.4-10.4); Monocytes 9 % (0-10); Neutrophil 36 % (42-75); Platelet Count 248 thou/uL (130-400); RBC Distribution Width 13.6 % (11.5-14.5); Red Blood Cell (RBC) Count 3.67 mill/uL (4.70-6.10); White Blood Cell (WBC) Count 4.1 thou/uL (4.8-10.8)
[2021-07-22] MEDS ORDERED: Iopamidol 370 76% 100 ML VIAL ONE (08:58)
[2021-07-22] MEDS: Enoxaparin Sodium 40 MG/0.4 ML SYRINGE SC SCH (19:38)
[2021-07-23] MEDS: Ondansetron PF 4 MG/2 ML Vial IVP PRN ×2 (00:04→09:47)
[2021-07-23] MEDS: Ketorolac Tromethamine 30 MG/ML VIAL IVP SCH ×4 (03:02→20:35)
[2021-07-23] MEDS: Lactated Ringer's 1,000 ML IV SCH ×3 (03:37→20:27)
[2021-07-23 07:15] LABS: #Eosinphils 0.1 thou/uL (0.0-0.7); #Lymphocytes 0.4 thou/uL (1.20-3.40); #Monocytes 0.3 thou/uL (0.11-0.59); #Neutrophils 6.4 thou/uL (1.40-6.50); %Basophils 0.3 % (0.0-1.0); %Eosinophils 0.7 % (0.0-10.0); %Lymphocytes 4.9 % (21.0-51.0); %Monocytes 3.9 % (0.0-10.0); %Neutrophils 90.2 % (42.0-75.0); Hemoglobin 13.1 g/dL (14.0-18.0); Mean Corpuscular HGB CONC 33.8 g/dL (32.0-36.0); Mean Corpuscular Hemoglobin 31.4 pg (27.0-31.0); Mean Corpuscular Volume 92.7 fL (78.0-98.0); Mean Platelet Volume 7.4 fL (7.4-10.4); Platelet Count 336 thou/uL (130-400); RBC Distribution Width 13.8 % (11.5-14.5); Red Blood Cell (RBC) Count 4.16 mill/uL (4.70-6.10); White Blood Cell (WBC) Count 7.1 thou/uL (4.8-10.8)
[2021-07-23 07:40] LABS: ALT (SGPT) 17 U/L (8-55); AST (SGOT) 18 U/L (5-34); Albumin 3.6 g/dL (3.5-5.0); Alkaline Phosphatase 116 U/L (40-110); Anion Gap 21 mmol/L (10-20); BUN (Urea Nitrogen) 10 mg/dL (8.9-20.6); Calc. Creatinine Clearance 116 mL/min (70-130); Calcium 9.2 mg/dL (7.8-10.44); Carbon Dioxide 22 mmol/L (22-29); Chloride 102 mmol/L (98-107); Globulin 3.7 g/dL (2.4-3.5); Glucose 79 mg/dL (70-105); Magnesium 1.6 mg/dL (1.6-2.6); Potassium 3.7 mmol/L (3.5-5.1); Protein, Total 7.3 g/dL (6.0-8.3); Sodium 141 mmol/L (136-145)
[2021-07-23] MEDS: HYDROmorphone 10 mg/100 ml CADD IVPB PRN (12:39)
[2021-07-23] MEDS: Enoxaparin Sodium 40 MG/0.4 ML SYRINGE SC SCH (20:35)
[2021-07-24] MEDS: Lactated Ringer's 1,000 ML IV SCH ×2 (04:35→15:23)
[2021-07-24] MEDS: Ketorolac Tromethamine 30 MG/ML VIAL IVP SCH ×4 (04:43→20:50)
[2021-07-24] MEDS: Ondansetron PF 4 MG/2 ML Vial IVP PRN (04:49)
[2021-07-24] MEDS: HYDROmorphone 10 mg/100 ml CADD IVPB PRN (09:11)
[2021-07-24] MEDS ORDERED: MD-Gastroview 120 ML BOT ONE (09:36)
[2021-07-24] MEDS ORDERED: Dextrose 50% Abboject 50 ML SYRINGE SLOW IVP PRN (14:20)
[2021-07-24] MEDS ORDERED: HumaLOG 300 UNITS/3 ML VIAL SC PRN (14:20)
[2021-07-24] MEDS ORDERED: Dextrose 5% in Water 1,000 ML IV PRN (14:20)
[2021-07-24] MEDS ORDERED: Acetaminophen 500 MG TAB PO SCH (15:00)
[2021-07-24] MEDS ORDERED: HYDROcodone/Acetaminophen 7.5/325 mg Tablet PO PRN ×2 (17:38)
[2021-07-24] MEDS ORDERED: traMADol HCl 50 MG TAB PO PRN (17:38)
[2021-07-24] MEDS ORDERED: Lactated Ringer's 1,000 ML IV SCH (17:40)
[2021-07-24] MEDS ORDERED: Multivitamins, Adult 10 ML, TRACE ELEMENT CONCENTRATE 1 ML in D15W-AA 5% w/o Lytes 2,00... IV SCH (18:00)
[2021-07-24] MEDS ORDERED: Acetaminophen 500 MG TAB PO PRN (19:23)
[2021-07-24] MEDS: Enoxaparin Sodium 40 MG/0.4 ML SYRINGE SC SCH (20:50)
[2021-07-25] MEDS: Ketorolac Tromethamine 30 MG/ML VIAL IVP SCH ×4 (02:13→21:22)
[2021-07-25 07:01] LABS: #Eosinphils 0.2 thou/uL (0.0-0.7); #Lymphocytes 0.8 thou/uL (1.20-3.40); #Monocytes 1.2 thou/uL (0.11-0.59); #Neutrophils 8.4 thou/uL (1.40-6.50); %Basophils 0.1 % (0.0-1.0); %Eosinophils 2.2 % (0.0-10.0); %Lymphocytes 7.8 % (21.0-51.0); %Neutrophils 78.9 % (42.0-75.0); Hemoglobin 12.3 g/dL (14.0-18.0); Mean Corpuscular HGB CONC 33.4 g/dL (32.0-36.0); Mean Corpuscular Hemoglobin 31.6 pg (27.0-31.0); Mean Corpuscular Volume 94.5 fL (78.0-98.0); Mean Platelet Volume 7.4 fL (7.4-10.4); Platelet Count 355 thou/uL (130-400); RBC Distribution Width 13.6 % (11.5-14.5); Red Blood Cell (RBC) Count 3.89 mill/uL (4.70-6.10); White Blood Cell (WBC) Count 10.6 thou/uL (4.8-10.8)
[2021-07-25 07:20] LABS: ALT (SGPT) 16 U/L (8-55); AST (SGOT) 16 U/L (5-34); Albumin 3.2 g/dL (3.5-5.0); Alkaline Phosphatase 112 U/L (40-110); Anion Gap 14 mmol/L (10-20); BUN (Urea Nitrogen) 20 mg/dL (8.9-20.6); Bilirubin, Total 0.8 mg/dL (0.2-1.2); Calc. Creatinine Clearance 130 mL/min (70-130); Calcium 9.1 mg/dL (7.8-10.44); Carbon Dioxide 28 mmol/L (22-29); Chloride 98 mmol/L (98-107); Globulin 3.8 g/dL (2.4-3.5); Glucose 143 mg/dL (70-105); Potassium 3.7 mmol/L (3.5-5.1); Sodium 136 mmol/L (136-145)
[2021-07-25] MEDS ORDERED: POTASSIUM CHLORIDE IV SCH (14:00)
[2021-07-25] MEDS ORDERED: [UNRECOGNIZED DRUG - OTHER] IV SCH (14:00)
[2021-07-25] MEDS ORDERED: SODIUM ACETATE IV SCH (14:00)
[2021-07-25] MEDS: Morphine 4 MG/ML VIAL SLOW IVP PRN ×2 (17:22→21:21)
[2021-07-25] MEDS: Metoclopramide 10 MG/10 ML UDCUP PO SCH ×2 (17:22→21:21)
[2021-07-25] MEDS: Enoxaparin Sodium 40 MG/0.4 ML SYRINGE SC SCH (21:21)
[2021-07-26] MEDS: Morphine 4 MG/ML VIAL SLOW IVP PRN ×6 (01:38→22:23)
[2021-07-26] MEDS: Ketorolac Tromethamine 30 MG/ML VIAL IVP SCH ×4 (02:01→20:39)
[2021-07-26] MEDS: Metoclopramide 10 MG/10 ML UDCUP PO SCH ×4 (07:21→20:38)
[2021-07-26] MEDS: Ondansetron PF 4 MG/2 ML Vial IVP PRN ×2 (09:47→22:24)
[2021-07-26] MEDS ORDERED: SODIUM ACETATE IV SCH (14:00)
[2021-07-26] MEDS ORDERED: POTASSIUM CHLORIDE IV SCH (14:00)
[2021-07-26] MEDS ORDERED: [UNRECOGNIZED DRUG - OTHER] IV SCH (14:00)
[2021-07-26] MEDS: Promethazine HCl 25 MG in Sodium Chloride 0.9% 50 ML IVPB PRN (18:01)
[2021-07-26] MEDS: Enoxaparin Sodium 40 MG/0.4 ML SYRINGE SC SCH (20:38)
[2021-07-27] MEDS: Morphine 4 MG/ML VIAL SLOW IVP PRN ×5 (02:07→22:52)
[2021-07-27] MEDS: Ketorolac Tromethamine 30 MG/ML VIAL IVP SCH ×4 (02:07→20:29)
[2021-07-27] MEDS: Metoclopramide 10 MG/10 ML UDCUP PO SCH ×4 (06:20→20:41)
[2021-07-27] MEDS: Ondansetron PF 4 MG/2 ML Vial IVP PRN ×3 (06:26→22:46)
[2021-07-27 07:31] LABS: #Eosinphils 0.3 thou/uL (0.0-0.7); #Monocytes 1.2 thou/uL (0.11-0.59); #Neutrophils 5.4 thou/uL (1.40-6.50); %Basophils 0.2 % (0.0-1.0); %Eosinophils 3.5 % (0.0-10.0); %Lymphocytes 12.6 % (21.0-51.0); %Monocytes 14.7 % (0.0-10.0); Hemoglobin 12.4 g/dL (14.0-18.0); Mean Corpuscular Hemoglobin 31.2 pg (27.0-31.0); Mean Corpuscular Volume 94.7 fL (78.0-98.0); Mean Platelet Volume 7.2 fL (7.4-10.4); Platelet Count 492 thou/uL (130-400); RBC Distribution Width 13.7 % (11.5-14.5); Red Blood Cell (RBC) Count 3.99 mill/uL (4.70-6.10); White Blood Cell (WBC) Count 7.9 thou/uL (4.8-10.8)
[2021-07-27 07:53] LABS: ALT (SGPT) 24 U/L (8-55); AST (SGOT) 28 U/L (5-34); Albumin 3.1 g/dL (3.5-5.0); Alkaline Phosphatase 275 U/L (40-110); Anion Gap 13 mmol/L (10-20); BUN (Urea Nitrogen) 21 mg/dL (8.9-20.6); Bilirubin, Total 0.6 mg/dL (0.2-1.2); Calc. Creatinine Clearance 141 mL/min (70-130); Calcium 9.4 mg/dL (7.8-10.44); Carbon Dioxide 27 mmol/L (22-29); Chloride 96 mmol/L (98-107); Glucose 124 mg/dL (70-105); Phosphorus 4.8 mg/dL (2.3-4.7); Potassium 3.4 mmol/L (3.5-5.1); Protein, Total 7.1 g/dL (6.0-8.3); Sodium 133 mmol/L (136-145)
[2021-07-27] MEDS: Promethazine HCl 25 MG in Sodium Chloride 0.9% 50 ML IVPB PRN (09:16)
[2021-07-27] MEDS ORDERED: POTASSIUM CHLORIDE IV SCH (14:00)
[2021-07-27] MEDS ORDERED: SODIUM ACETATE IV SCH (14:00)
[2021-07-27] MEDS ORDERED: [UNRECOGNIZED DRUG - OTHER] IV SCH (14:00)
[2021-07-27] MEDS: Enoxaparin Sodium 40 MG/0.4 ML SYRINGE SC SCH (20:30)
[2021-07-28] MEDS: Ketorolac Tromethamine 30 MG/ML VIAL IVP SCH (02:30)
[2021-07-28] MEDS: Morphine 4 MG/ML VIAL SLOW IVP PRN ×5 (03:17→20:18)
[2021-07-28] MEDS: Metoclopramide 10 MG/10 ML UDCUP PO SCH ×4 (07:52→20:23)
[2021-07-28] MEDS: Ondansetron ODT 4 MG TAB PO PRN (10:06)
[2021-07-28] MEDS: SODIUM ACETATE IV SCH (14:16)
[2021-07-28] MEDS: [UNRECOGNIZED DRUG - OTHER] IV SCH (14:16)
[2021-07-28] MEDS: POTASSIUM CHLORIDE IV SCH (14:16)
[2021-07-28] MEDS: Promethazine HCl 25 MG in Sodium Chloride 0.9% 50 ML IVPB PRN ×2 (15:37→23:50)
[2021-07-28] MEDS: Ondansetron PF 4 MG/2 ML Vial IVP PRN (20:13)
[2021-07-28] MEDS: Enoxaparin Sodium 40 MG/0.4 ML SYRINGE SC SCH (20:23)
[2021-07-29] MEDS: Morphine 4 MG/ML VIAL SLOW IVP PRN ×6 (00:08→22:30)
[2021-07-29] MEDS: Ondansetron PF 4 MG/2 ML Vial IVP PRN (04:06)
[2021-07-29] MEDS: Metoclopramide 10 MG/10 ML UDCUP PO SCH ×4 (05:41→21:16)
[2021-07-29] MEDS: Ondansetron ODT 8 MG TAB SL PRN ×2 (09:17→21:16)
[2021-07-29] MEDS: Promethazine HCl 25 MG in Sodium Chloride 0.9% 50 ML IVPB PRN (14:30)
[2021-07-29] MEDS: SODIUM ACETATE IV SCH (16:32)
[2021-07-29] MEDS: POTASSIUM CHLORIDE IV SCH (16:32)
[2021-07-29] MEDS: [UNRECOGNIZED DRUG - OTHER] IV SCH (16:32)
[2021-07-29] MEDS: Enoxaparin Sodium 40 MG/0.4 ML SYRINGE SC SCH (21:17)
[2021-07-29] MEDS ORDERED: POTASSIUM CHLORIDE IV SCH (22:00)
[2021-07-29] MEDS ORDERED: [UNRECOGNIZED DRUG - OTHER] IV SCH (22:00)
[2021-07-29] MEDS ORDERED: SODIUM ACETATE IV SCH (22:00)
[2021-07-30] MEDS: Morphine 4 MG/ML VIAL SLOW IVP PRN ×5 (02:33→21:12)
[2021-07-30] MEDS: Metoclopramide 10 MG/10 ML UDCUP PO SCH ×4 (06:04→21:11)
[2021-07-30] MEDS ORDERED: POTASSIUM CHLORIDE IV SCH (14:00)
[2021-07-30] MEDS ORDERED: [UNRECOGNIZED DRUG - OTHER] IV SCH (14:00)
[2021-07-30] MEDS ORDERED: SODIUM ACETATE IV SCH (14:00)
[2021-07-30] MEDS: Ondansetron ODT 8 MG TAB SL PRN (15:19)
[2021-07-30] MEDS: Enoxaparin Sodium 40 MG/0.4 ML SYRINGE SC SCH (21:12)
[2021-07-31] MEDS: Ondansetron ODT 8 MG TAB SL PRN (01:09)
[2021-07-31] MEDS: Morphine 4 MG/ML VIAL SLOW IVP PRN ×4 (01:10→14:32)
[2021-07-31] MEDS: Metoclopramide 10 MG/10 ML UDCUP PO SCH ×2 (06:27→10:00)
[2021-07-31] MEDS: Ondansetron ODT 4 MG TAB PO PRN (12:41)
[2021-07-31] MEDS ORDERED: SODIUM ACETATE IV SCH (14:00)
[2021-07-31] MEDS ORDERED: [UNRECOGNIZED DRUG - OTHER] IV SCH (14:00)
[2021-07-31] MEDS ORDERED: POTASSIUM CHLORIDE IV SCH (14:00)
[2021-07-31 16:51] VITALS: BP 127/78; TEMP 98.2
== END 2021-07-31 17:14 | disposition home or self-care (01) | DRG 330 ==
LOC: SURG A 07-18 05:49 → SURG B 07-18 13:53
PROVIDERS: ADMIT Specialist; ATTEND Specialist
PROC: 0D1L4Z4 Bypass Transverse Colon to Cutaneous, Percutaneous Endoscopic Approach (ICD-10-PCS; principal; 2021-07-18)
PROC: 0DB Gastrointestinal System, Excision (ICD-10-PCS; 2021-07-18)
PROC: 0DBB4ZZ Excision of Ileum, Percutaneous Endoscopic Approach (ICD-10-PCS; 2021-07-18)
PROC: 0D9770Z Drainage of Stomach, Pylorus with Drainage Device, Via Natural or Artificial Opening (ICD-10-PCS; 2021-07-18)
PROC: 02HV33Z Insertion of Infusion Device into Superior Vena Cava, Percutaneous Approach (ICD-10-PCS; 2021-07-24)
PROC: B548ZZA Ultrasonography of Superior Vena Cava, Guidance (ICD-10-PCS; 2021-07-24)
PROC: 3E0436Z Introduction of Nutritional Substance into Central Vein, Percutaneous Approach (ICD-10-PCS; 2021-07-24)
DX: K50.90 Crohn's disease, unspecified, without complications (principal); E44.0 Moderate protein-calorie malnutrition; K56.7 Ileus, unspecified; K66.0 Peritoneal adhesions (postprocedural) (postinfection); Z20.822 Contact with and (suspected) exposure to COVID-19; Z68.20 Body mass index [BMI] 20.0-20.9, adult; Z79.899 Other long term (current) drug therapy; Z79.52 Long term (current) use of systemic steroids
CPT/HCPCS: 36415; 36416; 36569; 74018; 74022; 74177; 74250; 80048; 80053; 82533; 83735; 84100; 85025; 88307; A4649; C1751; J0610; J0694; J1170; J1200; J1644; J1650; J1885; J2001; J2250; J2270; J2405; J2550; J2704; J3010; J3475; J3480; J3490; J7120; Q0162; Q9963; Q9967; S0020